=== PATIENT | male | born 1960 | race Caucasian/White ===

== ENCOUNTER → 2020-11-27 14:10 | Outpatient (BNVA) | payer OTHER, SELFPAY | PROVIDERS: Family Provider General Practice; Visit Provider Surgery | DX: R22.2 Localized swelling, mass and lump, trunk (principal) | CPT/HCPCS: 87635 ==

== ENCOUNTER 2020-12-03 07:17 | Day surgery (SDC) | payer MEDICARE, OTHER, SELFPAY ==
[2020-11-28 09:32] VITALS: BMI 25.7
[2020-12-03 07:48] VITALS: BP 128/81; PULSE 52; RESP 16; TEMP 36.6; O2SAT 99
[2020-12-03] MEDS: sodium chloride 0.9% 1,000 ML 30 ML IV (08:18)
--- NOTE | 2020-12-03 08:19 | W.PM.OPSUD ---
Surgery/Procedure H&P Update DATE OF PROCEDURE: December 03, 2020 DATE H&P PERFORMED: 11/14/20 H&P UPDATE INFORMATION: I have reviewed H&P completed within last 30 days, I have examined patient prior to procedure and No changes to prior documentation PREOP DIAGNOSIS: BACK MASS PRIMARY INDICATION FOR PROCEDURE: The same PLANNED PROCEDURE: Operation Date: 12/03/20 09:00 Proposed Procedures p Excision of back mass 69248 r22.2(Not Applicable) - Andres Downing MD
--- NOTE | 2020-12-03 08:36 | P.ANESASSM_ITS ---
Pre-Anesthetic Assessment Pre-Anesthetic Assessment: Height/Weight: Height 1.88 m Weight 90.718 kg Temp Pulse Resp BP Pulse Ox 97.8 F 52 L 16 128/81 99 12/03/20 07:48 12/03/20 07:48 12/03/20 07:48 12/03/20 07:48 12/03/20 07:48 Preop Diagnosis: BACK MASS Proposed Procedure: Operation Date: 12/03/20 09:00 Proposed Procedures p Excision of back mass [id number] r22.2(Not Applicable) - Andres Downing MD Familial anesthetic complications: None Was Beta Anmol taken within 24 hours: N/A Last intake: Intake Last Liquid Date 12/02/20 Last Liquid Time 22:00 Last Solid Date 12/02/20 Last Solid Time 22:00 Social: Social History: Tobacco and No alcohol Exam: Pre-Anes Outpt Exam: alert, oriented x 3, clear to auscultation b ilaterally and regular rate & rhythm Airway: Cervical ROM: WNL MP: 3 Dentition: False Pulmonary: Pulmonary: COPD CV/HEM: CV/HEM: HTN Neuropsych: Neuropsych: Depression Anesthetic Plan: ASA status: 3 Anesthesia: MAC Risk of > 500 ml blood loss (7ml/kg in children): No Meds/Allergies Current Medications: Current Medications Generic Name Dose Route Start Last Admin Trade Name Freq PRN Reason Stop Dose Admin Sodium Chloride 1,000 mls @ 30 ml s/hr 12/03/20 07:45 12/03/20 08:18 Sodium Chloride 0.9% IV 12/04/20 07:44 30 mls/hr .Q24H JAMES Administration PFSH Anesthesia PFSH: Surgical History History of removal of cyst Family History Father Lung disease Social History Smoking and tobacco status: current every day smoker cigarettes Alcohol intake: current Alcohol intake frequency: holidays/special occasions only Adopted: No Caregiver/support person: Yes Lives independently: Yes Household members: none Housing: House Current occupational status: disabled History of recent travel: No Current gender identity: Male Data Anesthesia Cardiac Studies: No Data to Display
[2020-12-03] MEDS: lidocaine 2% INJ 20 mL (09:05)
--- NOTE | 2020-12-03 09:12 | P.OP_ITS ---
Operative Report Date of procedure: December 03, 2020 Pre-op Diagnosis: BACK MASS Post-op diagnosis: same Post-op Findings: Nearby scar from previous surgery Procedure Done: Excision of back mass including a previous scar Specimens removed/disposition: Back mass with short suture superior and long sutures marked right lateral Surgeon: Andres Downing Home Sales Consultant: Surgical rustam Chacon Circulating nurse Olga Lidia Anesthesia: MAC (Yobani Mckinley) Estimated blood loss (mL): 5 Condition: stable Disposition: same day Brief History: This is a pleasant 52 years old gentleman referred to my office complaining of mid back mass, apparently the patient had a previous excision of closed by cyst and to the patient's knowledge he believes that the cyst came back. After history taking physical examination and reviewing the chart I did automobile travel club counselor the patient for excision of mid back mass under anesthesia including the previous scar. Informed consent per chart as patient agreed to proceed accordingly. Procedure: After identifying the patient holding area,Mid back mass was marked b efore the procedure by myself, patient was then taken to the operative suite, was placed in left lateral position and all pressure points were padded, IV antibiotics were given per protocol,IV propofol was infused by the anesthesia provider, prep and drape of the mid back region was done under the usual sterile technique. Time-out was done verifying the patient's name/date of /planned procedure and destination after the procedure, all were in agreement. After palpation of the mass and the nearby scar. Infiltration of lidocaine 2%. I did an elliptical incision on top of the mass including the nearby scar to the right lateral of the mass. I was able to dissect using sharp dissection and the whole cyst was excised from the surrounding tissues with appropriate healthy margins, short suture marked superior and long suture is marked right lateral. The mass was then passed to the circulating nurse for permanent pathology. Thorough irrigation of the cavity was done and hemostasis, undermining and elevation of superior and inferior flaps were done to allow closure without tension followed by deep dermal closure by 2-0 Vicryl, then 2/0 nylon sutures as continuous closure followed by triple antibiotic ointment and pressure dressing. Patient tolerated the procedure well, count of instruments, needles and sponges were completed at the end of the procedure.Patient tolerated the procedure and then patient was taken to the recovery area in stable condition. I was present for the whole entire procedure
[2020-12-03] MEDS: neomycin-poly-bacitracin oint 28 gm 28 APPLIC (09:13)
[2020-12-03 09:17] VITALS: BP 98/70; PULSE 60; RESP 18; TEMP 36.2; O2SAT 100
[2020-12-03 09:40] VITALS: BP 115/84; PULSE 63; RESP 18; O2SAT 99
--- NOTE | 2020-12-03 18:57 | ANE.PACU2 ---
Inpatient post-anesthesia follow up: Airway intact: Yes Vital signs: Temperature 97.1 F Pulse Rate 63 Respiratory Rate 18 Blood Pressure 115/84 Pulse Oximetry 99 Oxygen Delivery Me thod Room Air Oxygen Flow Rate Fraction of Inspir ed Oxygen Hydration adequate: Yes Nausea and vomiting: No Pain level: 2 Mental status: Baseline
== END 2020-12-03 09:57 | disposition home or self-care (01) ==
PROVIDERS: PCP General Practice; Visit Provider Surgery
PROC: (CPT 11402; principal; 2020-12-03 09:00)
DX: L72.0 Epidermal cyst (principal); L90.5 Scar conditions and fibrosis of skin; J44.9 Chronic obstructive pulmonary disease, unspecified; I10 Essential (primary) hypertension; F32.9 Major depressive disorder, single episode, unspecified; F17.210 Nicotine dependence, cigarettes, uncomplicated
CPT/HCPCS: 11402; 12031; 12345; 88307; J0690; J2704; J3010; J7030